=== PATIENT | male | born 1970 | race African-American/Black ===

== ENCOUNTER → 2017-04-16 | Outpatient (CLI) | payer MEDICARE ==
[2015-06-28 08:00] VITALS: BP 126/53
[~2017-04-16] MED LIST: AMLO10TA2 PO; AMOX500C PO; FURO20TA3 PO; FURO40TA4 PO; GUAI5SYR PO; HYDR25TA9 PO; LABE200T2 PO; LEVO750T31 PO; LISI-334 PO; LISI40TA PO; SPIR25TA PO; SPIR25TA3 PO
--- NOTE | 2017-04-16 12:32 | CARD ---
APPROVED REPORT EXAM: Two-dimensional and M-mode echocardiogram with Doppler and color Doppler. Other Information Quality : Technically Limited Technically limited study due to body habitus. INDICATION Nonishemic Cardiomyopathy Surgery/Intervention ICD/Pacemaker: RISK FACTORS Obesity 2D DIMENSIONS RVDd3.9 (2.9-3.5cm)Left Atrium(2D)5.8 (1.6-4.0cm) IVSd1.6 (0.7-1.1cm)Aortic Root(2D)4.0 (2.0-3.7cm) LVDd5.5 (3.9-5.9cm)LVOT Diameter2.6 (1.8-2.4cm) PWd1.8 (0.7-1.1cm)LVDs4.0 (2.5-4.0cm) FS (%) 23.0 %SV77.5 ml LVEF(%)45.0 (>50%) Aortic Valve AoV Peak Maximo.157.6cm/sAoV VTI27.8cm AO Peak GR.9.9mmHgLVOT Peak Maximo.120.1cm/s AO Mean GR.5mmHgAVA (VMAX)4.19cm2 [place] (VTI)4.50cm2 Mitral Valve MV E Bbowtbnf76.2cm/sMV DECEL [id number] MV A Dkfukrrz061.4cm/sE/A Ratio0.5 LEFT VENTRICLE The left ventricle is normal size. There is moderate concentric left ventricular hypertrophy. Left ve ntricle systolic function is mildly impaired. The Ejection Fraction is 40-45%. There is global hypoki nesis of the left ventricle. Transmitral Doppler flow pattern is Grade I-abnormal relaxation pattern. RIGHT VENTRICLE The right ventricle is normal size. The right ventricular systolic function is normal. There is a dev ice lead in the right ventricle. ATRIA The left atrium is moderately dilated. The right atrium is moderately dilated. A device lead is seen in the right atrium consistent with history. The interatrial septum is intact with no evidence for an atrial septal defect or patent foramen ovale as noted on 2-D or Doppler imaging. AORTIC VALVE The aortic valve is not well visualized. Doppler and Color Flow revealed no significant aortic regurg itation. There is no significant aortic valvular stenosis. MITRAL VALVE The mitral valve is normal in structure and function. There is no evidence of mitral valve prolapse. There is no mitral valve stenosis. Doppler and Color Flow revealed trace mitral valve regurgitation. TRICUSPID VALVE The tricuspid valve is normal in structure and function. Doppler and Color Flow revealed trace tricus pid valve regurgitation. There is no tricuspid valve stenosis. PULMONIC VALVE The pulmonic valve is not well visualized but appears to be functioning normally by Doppler interroga tion. Doppler and Color Flow revealed no pulmonic valvular regurgitation. There is no pulmonic valvul ar stenosis. GREAT VESSELS The aortic root is mildly enlarged at 4.0 cm. The ascending aorta is mildly dilated at 4.2 cm. The IV C is normal in size and collapses >50% with inspiration. PERICARDIAL EFFUSION There is no evidence of significant pericardial effusion. Critical Notification Critical Value: No <Conclusion> The left ventricle is normal size. Left ventricle systolic function is mildly impaired. The Ejection Fraction is 40-45%. There is global hypokinesis of the left ventricle. There is moderate concentric left ventricular hypertrophy. There is no significant aortic valvular stenosis. Doppler and Color Flow revealed no significant aortic regurgitation. Doppler and Color Flow revealed trace mitral valve regurgitation. Doppler and Color Flow revealed trace tricuspid valve regurgitation. The aortic root is mildly enlarged at 4.0 cm. The ascending aorta is mildly dilated at 4.2 cm.
== END | disposition home or self-care (01) ==
LOC: ECHO 11:30
PROVIDERS: ATTEND Internal Medicine Cardiovascular Disease
DX: I42.8 Other cardiomyopathies (principal); E66.9 Obesity, unspecified; Z95.0 Presence of cardiac pacemaker
CPT/HCPCS: 93306